=== PATIENT | male | born 1990 | race Hispanic/Latino ===

== ENCOUNTER 2018-02-25 09:56 | Emergency (ER) | payer MEDICAID ==
[2018-02-25 10:15] VITALS: BP 114/87
[2018-02-25] MEDS ORDERED: TORADOL IM ONE (11:51)
--- NOTE | 2018-02-25 11:56 | Emergency Department Report ---
ED Back Pain/Injury HPI - General Chief Complaint: Back Pain/Injury Stated Complaint: BACK PAIN Time Seen by Provider: 02/25/18 11:43 Source: patient Limitations: No Limitations - History of Present Illness Initial Comments: This is a 27-year-old male nontoxic, well nourished in appearance, no acute signs of distress presents to the ED with c/o of acute on chronic lower back pain. Patient stated that the past 2 days he was moving and developed this pain. Patient states has history of sciatica nerve pain which is similar symptoms as today. Patient states that pain radiates through to his left lower extremity. Patient also stated has intermittent anal blood only after a bowel movement during whipping. Patient otherwise denies any anal bleeding or GI bleeding. Patient stated that he has been constipated for a long time. Patient denies any trauma. Denies any bladder or bowel instability. Patient denies any urinary symptoms. Denies any fever, chills, nausea, vomiting, headache, stiff neck, chest pain or shortness of breath. Patient denies any numbness or tingling. Denies any allergies. Denies significant past medical history. MD Complaint: back pain -: month(s) (1) Similar Symptoms Previously: Yes Radiation: left leg Severity: mild Severity scale (0 -10): 8 Quality: aching Consistency: intermittent Improves With: immobilization, supine, sitting upright Worsens With: movement, walking Context: while lifting, turning/twisting Associated Symptoms: constipation. denies: confusion, weakness, chest pain, numbness, difficulty walking, cough, difficulty urinating, diaphoresis, incontinence, fever/chills, headaches, abdominal pain, loss of appetite, malaise , nausea/vomiting, seizure, shortness of breath, syncope - Related Data Previous Rx's Medication Instructions Recorded Last Taken Type Cyclobenzaprine [Flexeril] 10 mg PO QHS PRN #10 tablet 02/25/18 Unknown Rx Docusate Sodium [Colace] 100 mg PO BID PRN #30 capsule 02/25/18 Unknown Rx Ibuprofen [Motrin] 600 mg PO Q8H PRN #30 tablet 02/25/18 Unknown Rx Allergies Allergy/AdvReac Type Severity Reaction Status Date / Time No Known Allergies Allergy Unverified 02/25/18 10:15 ED Review of Systems ROS: Stated complaint: BACK PAIN Other details as noted in HPI Constitutional: denies: chills, fever Eyes: denies: eye pain, eye discharge, vision change ENT: denies: ear pain, throat pain Respiratory: denies: cough, shortness of breath, wheezing Cardiovascular: denies: chest pain, palpitations Endocrine: no symptoms reported Gastrointestinal: denies: abdominal pain, nausea, diarrhea Genitourinary: denies: urgency, dysuria Musculoskeletal: back pain. denies: joint swelling, arthralgia Skin: denies: rash, lesions Neurological: denies: headache, weakness, paresthesias Psychiatric: denies: anxiety, depression Hematological/Lymphatic: denies: easy bleeding, easy bruising ED Past Medical Hx - Past Medical History Previous Medical History?: No - Surgical History Past Surgical History?: No - Social History Smoking Status: Current Every Day Smoker Substance Use Type: Alcohol - Medications Home Medications: Home Medications Medication Instructions Recorded Confirmed Last Taken Type Cyclobenzaprine [Flexeril] 10 mg PO QHS PRN #10 tablet 02/25/18 Unknown Rx Docusate Sodium [Colace] 100 mg PO BID PRN #30 capsule 02/25/18 Unknown Rx Ibuprofen [Motrin] 600 mg PO Q8H PRN #30 tablet 02/25/18 Unknown Rx ED Physical Exam - General Limitations: No Limitations General appearance: alert, in no apparent distress - Head Head exam: Present: atraumatic, normocephalic - Eye Eye exam: Present: normal appearance - ENT ENT exam: Present: mucous membranes moist - Neck Neck exam: Present: normal inspection - Respiratory Respiratory exam: Present: normal lung sounds bilaterally. Absent: respiratory distress - Cardiovascular Cardiovascular Exam: Present: regular rate, normal rhythm. Absent: systolic murmur, diastolic murmur, rubs, gallop - GI/Abdominal GI/Abdominal exam: Present: soft, normal bowel sounds. Absent: distended, tenderness, guarding, rebound, rigid, diminished bowel sounds - Rectal Rectal exam: Present: deferred, normal inspection, normal rectal tone, heme (-) stool, normal prostate. Absent: decreased rectal tone, heme (+) stool, black stool, bloody stool, fecal impaction, hemorrhoids, mass, tenderness, prostate tenderness, prostate enlargement - exam: Present: other - Extremities Exam Extremities exam: Present: normal inspection, full ROM, normal capillary refill. Absent: tenderness - Back Exam Back exam: Present: normal inspection, full ROM, paraspinal tenderness (lumbar paraspinal area). Absent: tenderness, CVA tenderness (R), CVA tenderness (L), muscle spasm, vertebral tenderness, rash noted - Expanded Back Exam Expanded Back exam: Absent: saddle anesthesia Back exam: Negative Straight Leg Raising: Left, Right - Neurological Exam Neurological exam: Present: alert, oriented X3, normal gait - Psychiatric Psychiatric exam: Present: normal affect, normal mood - Skin Skin exam: Present: warm, dry, intact, normal color. Absent: rash ED Course Vital Signs 02/25/18 10:11 Temperature 98.2 F Pulse Rate 61 Respiratory 16 Rate Blood Pressure 114/87 O2 Sat by Pulse 100 Oximetry - Reevaluation(s) Reevaluation #1: 02/25/18 11:55 Patient is speaking in full sentences with no signs of distress noted. ED Medical Decision Making - Medical Decision Making This is a 27-year-old male that presents with low back strain and constipation. Patient is stable was examined by me. There is no spinal tenderness. There is no cauda equina syndrome during examination. No bladder or bowel instability. Patient received Toradol 30 mg IM in the ED which preceded his symptoms has resolved and subsided. Patient is discharged with muscle relaxant and Motrin. Patient was instructed not to operate any machinery while taking muscle relaxant as they cause her drowsiness. There was a normal anal exam with negative occult blood. Patient was referred to Follow-up with a primary care doctor in 3-5 days or if symptoms worsen and continue return to emergency room as soon as possible. At time of discharge, the patient does not seem toxic or ill in appearance. No acute signs of distress noted. Patient agrees to discharge treatment plan of care. No further questions noted by the patient. This chart is dictated with using [employer] Critical care attestation.: If time is entered above; I have spent that time in minutes in the direct care of this critically ill patient, excluding procedure time. ED Disposition Clinical Impression: Constipation Qualifiers: Constipation type: unspecified constipation type Qualified Code(s): K59.00 - Constipation, unspecified Low back strain Qualifiers: Encounter type: initial encounter Qualified Code(s): S39.012A - Strain of muscle, fascia and tendon of lower back, initial encounter Disposition: DC-01 TO HOME OR SELFCARE Is pt being admited?: No Does the pt Need Aspirin: No Condition: Stable Instructions: Constipation (ED), High Fiber Diet (ED), Low Back Strain (ED), Cyclobenzaprine (By mouth), Ibuprofen (By mouth) Additional Instructions: Follow-up with your primary care doctor in 3-5 days or if symptoms worsen such as bladder or bowel stability, chest pain, short of breath, numbness or tingling sensation in extremities, headache, dizziness, visual changes, nausea vomiting, or abdominal pain, return back to emergency room as was possible. Take ibuprofen and Flexeril as prescribed. Do not operate heavy machinery while taking Flexeril due to sedation Prescriptions: Cyclobenzaprine [Flexeril] 10 mg PO QHS PRN #10 tablet PRN Reason: Muscle Spasm Docusate Sodium [Colace] 100 mg PO BID PRN #30 capsule PRN Reason: Constipation Ibuprofen [Motrin] 600 mg PO Q8H PRN #30 tablet PRN Reason: Pain Referrals: PRIMARY CAREMD [Primary Care Provider] - 3-5 Days MICHAEL GALINDO MD [Staff Physician] - 3-5 Days [facility] [Outside] - 3-5 Days [facility] [Outside] - 3-5 Days Forms: Work/School Release Form(ED)
== END 2018-02-25 12:16 | disposition home or self-care (01) ==
LOC: ED 09:56
DX: S39.012A Strain of muscle, fascia and tendon of lower back, initial encounter (principal); K59.00 Constipation, unspecified; F17.200 Nicotine dependence, unspecified, uncomplicated; X58.XXXA Exposure to other specified factors, initial encounter; Y93.89 Activity, other specified; Y92.89 Other specified places as the place of occurrence of the external cause; Y99.8 Other external cause status
CPT/HCPCS: 96372; 99282; J1885

== ENCOUNTER 2020-07-12 07:40 | Outpatient (CLI) | payer OTHER ==
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
== END 2020-07-12 07:41 | disposition home or self-care (01) ==
LOC: CT 07:40
PROVIDERS: ATTEND Specialist
DX: M19.071 Primary osteoarthritis, right ankle and foot (principal); M19.09 Primary osteoarthritis, other specified site; M86.8X8 Other osteomyelitis, other site; M25.70 Osteophyte, unspecified joint; M25.48 Effusion, other site; M85.661 Other cyst of bone, right lower leg; R60.0 Localized edema

== ENCOUNTER 2021-06-06 15:38 | Emergency (ER) | payer OTHER ==
[2021-06-06] MEDS ORDERED: SODIUM CHLORIDE 0.9% 1000 ML IV SOLN IV ONE (15:52)
[2021-06-06] MEDS ORDERED: VANCOMYCIN 1,750 MG in SODIUM CHLORIDE 0.9% 500 ML 500 ML IV ONE (15:53)
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
[2021-06-06] MEDS ORDERED: VANCOMYCIN PHARMACY TO DOSE IV SCH (16:00)
[2021-06-06] MEDS ORDERED: VANCOMYCIN 2,000 MG in SODIUM CHLORIDE 0.9% 500 ML 500 ML IV ONE (16:30)
--- NOTE | 2021-06-06 16:37 | XRay Report ---
XR tibia fibula 2V LT INDICATION / CLINICAL INFORMATION: leg pain. COMPARISON: None available. FINDINGS: BONES/JOINT(S): No acute fracture or subluxation. Previous internal fixation in the distal tibia and fibula with chronic appearing residual deformity of the distal tibia. No aggressive appearing bone de struction. SOFT TISSUES: Soft tissue swelling throughout the ankle without unexpected radiopaque foreign body or appreciable soft tissue gas. ADDITIONAL FINDINGS: None. Signer Name: Terence Rao MD Signed: 06/06/2021 4:33 PM Workstation Name: [id number]
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
[2021-06-06 16:47] LABS: Basophils % (Auto) 0.2 % (0.0-1.8); Eosinophils % (Auto) 0.6 % (0.0-4.3); Hematocrit 41.9 % (35.5-45.6); Hemoglobin 13.8 gm/dl (11.8-15.2); Lymphocytes # (Auto) 1.8 K/mm3 (1.2-5.4); Lymphocytes % (Auto) 37.8 % (13.4-35.0); Mean Corpuscular HGB Conc 33 % (32-34); Mean Corpuscular Volume 93 fl (84-94); Monocytes # (Auto) 0.5 K/mm3 (0.0-0.8); Monocytes % (Auto) 10.1 % (0.0-7.3); Platelet Count 232 K/mm3 (140-440); Red Blood Count 4.52 M/mm3 (3.65-5.03); Red Cell Distribution Width 13.4 % (13.2-15.2)
[2021-06-06 17:11] LABS: Alanine Aminotransferase 15 units/L (7-56); Albumin 3.9 g/dL (3.9-5); Blood Urea Nitrogen 10 mg/dL (9-20); Calcium 9.1 mg/dL (8.4-10.2); Hemolysis Index 11
[2021-06-06 17:19] LABS: BUN/Creatinine Ratio 14
[2021-06-06] MEDS ORDERED: MORPHINE 4 MG/1 ML INJ IV ONE (17:50)
[2021-06-06] MEDS ORDERED: KETOROLAC 30 MG/1 ML INJ IV ONE (17:50)
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
[2021-06-06 21:39] VITALS: BP 123/69
== END 2021-06-06 21:38 ==
LOC: ED 15:38
DX: L03.116 Cellulitis of left lower limb (principal); J45.909 Unspecified asthma, uncomplicated; F17.200 Nicotine dependence, unspecified, uncomplicated; Z72.89 Other problems related to lifestyle; Z79.899 Other long term (current) drug therapy
CPT/HCPCS: 36415; 73590; 73630; 80053; 82140; 85025; 96365; 96366; 96375; 99283; J1885; J2270; J3370; J7040